=== PATIENT | male | born 1965 ===

== ENCOUNTER → 2018-02-24 08:45 | Day surgery (SDC) | payer BC, OTHER ==
[~2018-02-24 08:45] MED LIST: Acetaminophen TAB* 325 MG PO PRN; Buffered Lidocaine 0.9% SYRIN* 5 ML/SYR SYRINGE INTRADERM ONE; Bupivacaine 0.25% EPI 200,000* 30 ML SDV ONE; Dexamethasone IV* 4 MG/ML 1 ML (4 MG) IV SLOW PU ONE; Dexamethasone IV* 4 MG/ML 1 ML (4 MG) ONE; DiMENhydriNATE IV* 50 MG/ML VIAL IV PUSH PRN; EPINEPHRINE 1 MG/ML 1 ML VIAL ONE; Famotidine IV* 10 MG/ML 2 ML (20 mg) IV ONE; Famotidine IV* 10 MG/ML 2 ML (20 mg) ONE; HYDROcodone/ACETAMIN 5-325 MG* 1 TAB PO PRN; Lidocaine 1%* 5 ML VIAL ONE; Metoclopramide IV* 5 MG/ML 2 ML VIAL ONE; Midazolam* 1 MG/ML 2 ML VIAL (2 MG) ONE; Morphine INJ* 2 MG/ML 1 ML SYRINGE (TWO MG - NEW SYRINGE VERSION) IV PRN; Naloxone* 0.4 MG/ML 1 ML VIAL IV PRN; Ondansetron INJ* 2 MG/ML VIAL IV PRN; Ondansetron INJ* 2 MG/ML VIAL ONE; Propofol* 10 MG/ML 20 ML BTL IV PUSH ONE; ROPIVACAINE 5 MG/ML 30 ML BTL (0.5%) ONE; Rocuronium* 10 MG/ML VIAL ONE; Succinylcholine* 20 MG/ML 10 ML VIAL ONE; ceFAZolin 1 GM ADVAN(*) 1 GM ADDV.VIAL IVPB ONE; ceFAZolin 2 GM in NS PREMIX(*) 2 GM/100 ML BAG IVPB ONE; fentaNYL* 50 MCG/ML 2 ML VIAL (100 MCG VIAL) IV PRN; fentaNYL* 50 MCG/ML 2 ML VIAL (100 MCG VIAL) ONE
--- NOTE | 2018-02-25 01:51 | OP ---
DATE OF OPERATION: 02/24/18 - [facility] DATE OF : 61 SURGEON: Eduardo Zee MD MULTIMEDIA TEACHER: OMEGA Barker ANESTHESIA: Regional and general. PRE-OP DIAGNOSIS: Right shoulder rotator cuff tear. POST-OP DIAGNOSIS: Right shoulder rotator cuff tear. OPERATIVE PROCEDURE: 1. Right shoulder arthroscopy and decompression. 2. Right shoulder rotator cuff repair. ESTIMATED BLOOD LOSS: Less than 20 cc. COMPLICATIONS: None. INDICATION: Mr. Clemente is a 52-year-old male who, 2 years ago, had fallen and had injured his right shoulder. It did get better to a certain degree, but recently has become much worse. From his history and physical, I am suspicious for rotator cuff tear which was confirmed by MRI. Considering his pain and limitations, I discussed with him that a shoulder arthroscopy and rotator cuff repair should work well to improve his shoulder pain and function. Risks of surgery such as infection, scar formation, stiffness, nonhealing of the repair, and continued pain were some of the risks discussed. He had been declared medically optimized and wished to proceed. DESCRIPTION OF PROCEDURE: The patient had a scalene block placed in the holding area and was brought back to the OR. He was then transferred to the OR table and general endotracheal anesthesia was established. He was positioned on the bed with a headwaitress and then sat up into the beach chair position. Care was taken to make sure that his left arm was nicely abducted and the cubital tunnel was nice and free. He was also tilted towards the left to make sure he was secure on the table and braces had been placed on the table to make sure he would not slide off. His positioning seemed to be quite good. Right shoulder area was prepped and then draped. Portal sites were preinjected using 0.25% Marcaine with epinephrine. A standard posterior portal was made first using an 11-blade. Blunt trocar and a sheath was easily introduced into the shoulder and a camera was introduced into the sheath. Shoulder was allowed to insufflate and pulling back, glenohumeral joint was nicely visualized. It could be seen where he had some damage on the superior labrum and this was hanging downwards. Under direct vision, using an outside-in- technique, anterior portal was established and probe was introduced and it could be seen where the labrum was still attached, but damaged. Shaver was introduced to clean this up, so that the labrum would not hang down into the glenohumeral joint. Coming over the top side of the humeral head, rotator cuff tear was immediately evident. Tear was mid-sized, but appeared to be in relatively good condition. Coming down to the pouch, no loose bodies were seen and coming back upwards from the portal, rotator cuff was grasped and pulled over and could be seen off this. He came over quite nicely. Shoulder was exited and subacromial space was entered. Bursa was taken down and underside of the acromion exposed. Coming back a little bit and over the top side of the rotator cuff, tear was also seen. Accessory portal was made under direct vision using the angle of the 18-gauge spinal needle, so that I knew I could get the anchors into his bone at a good angle. Two anchors were called for and both were placed and nice bite was obtained with both of them. Using the scorpion, sutures were passed and the first one went smoothly, but with the second one, I had twisted under the other set and then had to disentangle the sutures. I was; however, able to completely disentangle the sutures. With bringing the arm to abduction , I could easily just using the stitch bring him right down to the bone and sutures were tied down. Pictures were taken from above and then shoulder joint was reentered. It could be seen where there is a perhaps a millimeter gap with it, but it had been sewn down really quite nicely. Coming back into the subacromial space, trenton was then used to perform a decompression and care was taken not to damage the rotator cuff repair. Final picture was taken and all instrumentation was removed. Portal sites were closed using 4-0 nylon sutures and sterile dressing was applied. Shoulder immobilizer was also applied in the OR. The patient then was extubated in the OR, and was stable on transfer to the recovery room. DISPOSITION/DISCHARGE SUMMARY: Mr. Clemente is a 52-year-old male who just underwent a right shoulder arthroscopy and rotator cuff repair. He tolerated the procedure well. There were no complications. He is currently rolling towards the recovery room. Once he wakes a bit more from the general anesthesia , can tolerate p.o., has his pain well controlled, and can void, he will be discharged home. Scripts of [place] will be e-scribed in. He has instructions to keep his dressing clean, dry, and intact for the next 3 days; but, after that, may take his dressing down, cover his sutures with Band-Aid, may shower, wash and get it wet, but should not soak it. He may do pendulum exercises and should not reach outside the box from his shoulders to his knees. I specifically demonstrated him he should not reach up and he should not reach out. I would like to see him in the office in about 10 to 14 days to remove his sutures, and make sure he is doing well. We will continue with his motion restriction for a total of 4 weeks and then we will start him with a range of motion program increasing his external rotation and abduction and then probably start him with a strengthening program 2 weeks after that. [id number]/[facility] #: [id number] AMILCAR
[2018-02-25 07:29] VITALS: BP 131/85
== END | disposition home or self-care (01) ==
LOC: OR 08:45
PROVIDERS: ATTEND Orthopaedic Surgery
DX: S46.011A Strain of muscle(s) and tendon(s) of the rotator cuff of right shoulder, initial encounter (principal); W19.XXXA Unspecified fall, initial encounter; Y92.9 Unspecified place or not applicable; I10 Essential (primary) hypertension; E78.5 Hyperlipidemia, unspecified; G47.33 Obstructive sleep apnea (adult) (pediatric); Z87.891 Personal history of nicotine dependence; E66.9 Obesity, unspecified; G89.18 Other acute postprocedural pain
CPT/HCPCS: C1713; J0330; J0690; J1100; J2250; J2405; J2704; J2765; J2795; J3010